=== PATIENT | male | born 1960 | race Caucasian/White ===

== ENCOUNTER 2019-03-19 16:49 | Emergency (ER) | payer MEDICAID ==
--- NOTE | 2019-03-19 17:14 | EDM.PDOC ---
ED HPI GENERAL MEDICAL PROBLEM - General Chief Complaint: Genitourinary Problem Stated Complaint: STOMACH PAIN Time Seen by Provider: 03/19/19 16:57 Source of Information: Reports: Patient History Limitations: Reports: No Limitations - History of Present Illness INITIAL COMMENTS - FREE TEXT/NARRATIVE: 58-year-old male [place] Citizen Of [place] descent presents to the ED with a rash on the glans penis for the last 2-3 weeks. He states it's mildly itchy. When he wakes up in the morning he has a bit more discharge under the foreskin than usual. He is been washing the area 3 times a day with soap and this may be part of the problem. No previous similar problems. Onset: Gradual (Probably started 3 weeks ago.) Duration: Week(s):, Constant, Other (Not getting better) Location: Reports: Other (Rash to the glans penis.) Quality: Reports: Other Severity: Mild (Itching with mild burning at times) Improves with: Reports: None Worsens with: Reports: None Context: Reports: Other (Spontaneous occurrence.). Denies: Activity, Exercise, Lifting, Sick Contact, Trauma Associated Symptoms: Reports: No Other Symptoms Treatments [employer]: Reports: Other (see below) (None.) Penis Pain Score (Numeric/FACES): 3 - Related Data Home Meds: Home Meds Aspirin 81 mg PO DAILY 03/19/19 [History] Lisinopril [Prinivil] 5 mg PO DAILY 03/19/19 [History] Metoprolol Succinate 50 mg PO DAILY 03/19/19 [History] Terbinafine [LamISIL AT] 15 gm TP DAILY #1 tube 03/19/19 [Rx] Past Medical History HEENT History: Reports: Allergic Rhinitis Cardiovascular History: Reports: High Cholesterol, [place] Other Cardiovascular History: with two stents Social & Family History - Tobacco Use Smoking Status *Q: Never Smoker - Caffeine Use Caffeine Use: Reports: None - Living Situation & Occupation Occupation: Employed ED ROS GENERAL - Review of Systems Review Of Systems: See Below Constitutional: Denies: Fever, Chills, Malaise, Weakness, Fatigue, Decreased Appetite, Weight Loss HEENT: Reports: No Symptoms Respiratory: Reports: No Symptoms Cardiovascular: Reports: Blood Pressure Problem (Usually well-controlled with current medications.) Endocrine: Reports: No Symptoms GI/Abdominal: Reports: Other (Occasional problems with heartburn.) : Reports: Discharge (Rash glans penis for about 3 weeks. Notices a discharge from under the foreskin every morning when he gets up.), Other Musculoskeletal: Reports: Joint Pain (Mild arthritis hands knees and hips.) Skin: Reports: Other (Rash glans penis.) Neurological: Reports: No Symptoms ( No discharge from the urethra.) Psychiatric: Reports: No Symptoms Hematologic/Lymphatic: Reports: No Symptoms ED EXAM, RENAL/ - Physical Exam Exam: See Below Exam Limited By: No Limitations General Appearance: Alert, WD/WN, No Apparent Distress (Male) Exam: Other (Patient has mild balanitis underneath his foreskin. It is causing some mild erythema and inflammation of the dorsal surface of the glans penis. Is a component of yeast infection.) Extremities: Normal Inspection, Normal Range of Motion, Non-Tender Neurological: Alert, Oriented, CN II-XII Intact, Normal Cognition Course - Vital Signs Last Recorded V/S: Last Vital Signs Temp 36.7 C 03/19/19 16:56 Pulse 68 03/19/19 16:56 Resp 16 03/19/19 16:56 BP 151/86 H 03/19/19 16:56 Pulse Ox 98 03/19/19 16:56 - Radiology Interpretation Free Text/Narrative:: 58-year-old male presents to the ED with a rash on the glans penis for the last 2-3 weeks. It is mildly pruritic and burning at times. Associated with discharge from under the foreskin first thing in the morning. He has been cleansing the area 3 times daily often with soap containing perfume which is causing further irritation. Patient advised cleansing once daily as enough and just use water. She will be Lamisil cream to be applied to the area under the foreskin at bedtime and to use this for about 10 days for row. May need to use it again in the future. Departure - Departure Time of Disposition: 17:11 Disposition: Home, Self-Care 01 Condition: Fair Clinical Impression: Candidal balanitis - Discharge Information *PRESCRIPTION DRUG MONITORING PROGRAM REVIEWED*: Not Applicable *COPY OF PRESCRIPTION DRUG MONITORING REPORT IN PATIENT JODI: Not Applicable Prescriptions: Terbinafine [LamISIL AT] 15 gm TP DAILY #1 tube Instructions: Balanitis Referrals: PCP,None [Primary Care Provider] - Forms: ED Department Discharge Additional Instructions: Evaluation the emergency room today in regards to inflammation of the glans penis underneath the foreskin. This is caused by a yeast infection which we call candidiasis. Treatment is to apply Lamisil cream to the area once daily at bedtime for the next 10 days. They will look and feel much better within 2-3 days. Wash the area daily only with water. Area void all soaps that contain a large amount of perfume or deodorant. Lamisil cream is an [id number] medication and available in any pharmacy or at [facility].
== END 2019-03-19 17:27 | disposition home or self-care (01) ==
LOC: JD.ED 16:49
DX: B37.42 Candidal balanitis (principal); E78.00 Pure hypercholesterolemia, unspecified; I25.2 Old myocardial infarction; Z79.899 Other long term (current) drug therapy; Z79.82 Long term (current) use of aspirin
CPT/HCPCS: 99282; 99283

== ENCOUNTER 2021-02-25 18:29 | Emergency (ER) | payer MEDICAID, OTHER ==
--- NOTE | 2021-02-25 19:07 | EDM.PDOC ---
ED HPI GENERAL MEDICAL PROBLEM - General Chief Complaint: Medication Administration Stated Complaint: blood pressure high Time Seen by Provider: 02/25/21 18:44 Source of Information: Reports: Patient, RN Notes Reviewed History Limitations: Reports: No Limitations - History of Present Illness INITIAL COMMENTS - FREE TEXT/NARRATIVE: Patient is a 60-year-old male who presents to the ER for the evaluation of needing a medication refill. Patient is on 2 different blood pressure medications, metoprolol tartrate 50 mg twice daily, and lisinopril 5 mg daily. Patient notes he lives or resides in [place], and is in [place] in the [place] for work and is unable to get to his regular provider for medications. His provider refused to refill them, so he comes to the ER for medication refill. He states that he gets anxious when he gets close to the end of his blood pressure medications as he does not want to run out. He does note that his had some palpitations over the last few days, due to this. Other than this he is having no chest pain, denying any fevers or chills, cough or shortness of breath, or any sort of nausea/vomiting/diarrhea. - Related Data Allergies Allergy/AdvReac Type Severity Reaction Status Date / Time No Known Allergies Allergy Verified 02/25/21 18:42 Home Meds: Home Meds Aspirin 81 mg PO DAILY 03/19/19 [History] lisinopriL [Prinivil] 5 mg PO DAILY 03/19/19 [History] Metoprolol Tartrate 50 mg PO BID #60 tablet 02/25/21 [Rx] lisinopriL [Prinivil] 5 mg PO DAILY #30 tab 02/25/21 [Rx] Past Medical History HEENT History: Reports: Allergic Rhinitis Cardiovascular History: Reports: High Cholesterol, [place] Other Cardiovascular History: with two stents Social & Family History - Tobacco Use Tobacco Use Status *Q: Never Tobacco User - Caffeine Use Caffeine Use: Reports: None - Recreational Drug Use Recreational Drug Use: No - Living Situation & Occupation Occupation: Employed ED ROS GENERAL - Review of Systems Review Of Systems: Comprehensive ROS is negative, except as noted in HPI. ED EXAM, GENERAL - Physical Exam Exam: See Below Exam Limited By: No Limitations General Appearance: Alert, WD/WN, No Apparent Distress, Anxious (generalized slight) Respiratory/Chest: No Respiratory Distress, Lungs Clear, Normal Breath Sounds, No Accessory Muscle Use, Chest Non-Tender Cardiovascular: Normal Peripheral Pulses, Regular Rate, Rhythm, No Edema Peripheral Pulses: 2+: Radial (L), Radial (R) Extremities: Normal Inspection, Normal Capillary Refill Neurological: Alert, Oriented, Normal Cognition, No Motor/Sensory Deficits Psychiatric: Normal Affect, Normal Mood, Anxious (slight generalized) Skin Exam: Warm, Dry, Intact, Normal Color, No Rash #1 Interpretation EKG Date: 02/25/21 Time: 19:13 Rhythm: NSR Rate (Beats/Min): 90 [place]: Normal P-Wave: Present QRS: Normal ST-T: Normal QT: Normal Comparison: NA - No Prior EKG EKG Interpretation Comments: No obvious ischemia or acute ST changes noted, reviewed by myself and Dr. Dick. Course - Vital Signs Last Recorded V/S: Last Vital Signs Temp 97.2 F 02/25/21 18:40 Pulse 87 02/25/21 18:40 Resp 18 02/25/21 18:40 BP 179/91 H 02/25/21 18:40 Pulse Ox 99 02/25/21 18:40 - Orders/Labs/Meds Orders: Active Orders 24 hr Category Date Time Status EKG Documentation Completion [RC] STAT Care 02/25/21 19:00 Ordered - Re-Assessments/Exams Free Text/Narrative Re-Assessment/Exam: 02/25/21 19:03 Patient presents to the ED for a medication refill, I did offer to do laboratory evaluation to make sure electrolytes were all okay however he declined at this time. He does want an EKG to be done, as he was feeling some palpitations want to make sure there is no arrhythmias apparent. This has been ordered, and I have given him prescriptions for refill of his metoprolol lisinopril for ongoing management with some refills hopefully get him through until he can get back to [place] to see his provider. Departure - Departure Time of Disposition: 19:21 Disposition: Home, Self-Care 01 Condition: Good Clinical Impression: Encounter for medication refill, Palpitations with regular cardiac rhythm - Discharge Information *PRESCRIPTION DRUG MONITORING PROGRAM REVIEWED*: No *COPY OF PRESCRIPTION DRUG MONITORING REPORT IN PATIENT JODI: No Prescriptions: Metoprolol Tartrate 50 mg PO BID #60 tablet lisinopriL [Prinivil] 5 mg PO DAILY #30 tab Instructions: Palpitations, [id number] Referrals: PCP,Not In Area [Primary Care Provider] - Forms: ED Department Discharge Additional Instructions: You were evaluated in the ER today for a medication refill, and your palpitations. Refills of your metoprolol tartrate and lisinopril were provided, these were sent to the [place] pharmacy located in the [employer] [facility] located at [address] [place] [address], you were given a few refills on these medications, in hopes that you can make it until August when you go back home to see your provider for further management. EKG done at today's visit demonstrates no acute ischemic change, or arrhythmias. Please return to the ER at any time if symptoms change or worsen. Sepsis Event Note (ED) - Evaluation Sepsis Screening Result: No Definite Risk - Focused Exam Vital Signs: Vital Signs Temp Pulse Resp BP Pulse Ox 02/25/21 18:40 97.2 F 87 18 179/91 H 99 - My Orders Last 24 Hours: My Active Orders 02/25/21 19:00 EKG Documentation Completion [RC] STAT - Assessment/Plan Last 24 Hours: My Active Orders 02/25/21 19:00 EKG Documentation Completion [RC] STAT
== END 2021-02-25 19:30 | disposition home or self-care (01) ==
LOC: JD.ED 18:29
DX: R00.2 Palpitations (principal); Z76.0 Encounter for issue of repeat prescription; E78.00 Pure hypercholesterolemia, unspecified; I25.2 Old myocardial infarction; I10 Essential (primary) hypertension; Z95.5 Presence of coronary angioplasty implant and graft; Z79.82 Long term (current) use of aspirin; Z79.899 Other long term (current) drug therapy
CPT/HCPCS: 93005; 93010; 99282-25; 99283

== ENCOUNTER 2021-10-30 12:28 | Emergency (ER) | payer MEDICAID ==
--- NOTE | 2021-10-30 12:55 | EDM.PDOC ---
ED HPI GENERAL MEDICAL PROBLEM - General Chief Complaint: Medication Administration Stated Complaint: HIGH BLOOD PRESSURE Time Seen by Provider: 10/30/21 12:39 Source of Information: Reports: Patient, RN Notes Reviewed History Limitations: Reports: No Limitations - History of Present Illness INITIAL COMMENTS - FREE TEXT/NARRATIVE: Patient is a 60-year-old male who presents to the ER for a medication refill. Patient states that he is from [place], and was not able to return home in August like he had originally planned, so he has subsequently run out of his blood pressure medications. States that he takes metoprolol tartrate 50 mg twice daily and lisinopril 5 mg daily. States he is having no other sick issues like fevers or chills, cough or shortness of breath or any sort of chest pain. He strictly just ran out of his blood pressure medications and does not want his blood pressure get out of control. - Related Data Allergies Allergy/AdvReac Type Severity Reaction Status Date / Time No Known Allergies Allergy Verified 10/30/21 12:44 Home Meds: Home Meds Aspirin 81 mg PO DAILY 03/19/19 [History] Metoprolol Tartrate 50 mg PO BID #60 tablet 10/30/21 [Rx] lisinopriL [Lisinopril] 5 mg PO DAILY #30 tablet 10/30/21 [Rx] Past Medical History HEENT History: Reports: Allergic Rhinitis Cardiovascular History: Reports: High Cholesterol, [place] Other Cardiovascular History: with two stents Social & Family History - Tobacco Use Tobacco Use Status *Q: Never Tobacco User Second Hand Smoke Exposure: No - Caffeine Use Caffeine Use: Reports: Coffee - Recreational Drug Use Recreational Drug Use: No - Living Situation & Occupation Occupation: Employed ED ROS GENERAL - Review of Systems Review Of Systems: Comprehensive ROS is negative, except as noted in HPI. ED EXAM, GENERAL - Physical Exam Exam: See Below Exam Limited By: No Limitations General Appearance: Alert, WD/WN, No Apparent Distress Respiratory/Chest: No Respiratory Distress, Lungs Clear, Normal Breath Sounds, No Accessory Muscle Use, Chest Non-Tender Cardiovascular: Normal Peripheral Pulses, Regular Rate, Rhythm, No Edema Peripheral Pulses: 2+: Radial (L), Radial (R) Extremities: Normal Inspection, Normal Capillary Refill Neurological: Alert, Oriented, Normal Cognition, No Motor/Sensory Deficits Psychiatric: Normal Affect, Normal Mood Skin Exam: Warm, Dry, Intact, Normal Color, No Rash Course - Vital Signs Last Recorded V/S: Last Vital Signs Temp 98.0 F 10/30/21 12:42 Pulse 79 10/30/21 12:42 Resp 20 10/30/21 12:42 BP 155/92 H 10/30/21 12:42 Pulse Ox 100 10/30/21 12:42 - Re-Assessments/Exams Free Text/Narrative Re-Assessment/Exam: 10/30/21 12:59 Patient presents to the ER for medication refill. I did explain to him that coming to the ER for medication refill is not the most appropriate thing and that if the skin to be in this area for some time due to work, he should probably get a primary care provider in this area as well to facilitate these refills. Patient verbalized understanding. Departure - Departure Time of Disposition: 12:54 Disposition: Home, Self-Care 01 Condition: Good Clinical Impression: Encounter for medication refill - Discharge Information *PRESCRIPTION DRUG MONITORING PROGRAM REVIEWED*: No *COPY OF PRESCRIPTION DRUG MONITORING REPORT IN PATIENT JODI: No Prescriptions: lisinopriL [Lisinopril] 5 mg PO DAILY #30 tablet Metoprolol Tartrate 50 mg PO BID #60 tablet Instructions: Medicine Refill at the Emergency Department Referrals: PCP,None [Primary Care Provider] - Forms: ED Department Discharge Additional Instructions: You were evaluated in the ER today for a medication refill of your blood pressure medications. You have been given 2 different medication prescriptions, lisinopril 5 mg daily and metoprolol tartrate 50 mg twice daily. You have been given enough refills to get you through until March, until you can make it home to [place]. This medication was electronically sent to the [place] pharmacy located in the [employer] store. Thank you for allowing and choosing us to be involved in your healthcare needs. Sepsis Event Note (ED) - Focused Exam Vital Signs: Vital Signs Temp Pulse Resp BP Pulse Ox 10/30/21 12:42 98.0 F 79 20 155/92 H 100
== END 2021-10-30 13:40 | disposition home or self-care (01) ==
LOC: JD.ED 12:28
DX: I10 Essential (primary) hypertension (principal); Z76.0 Encounter for issue of repeat prescription; E78.00 Pure hypercholesterolemia, unspecified; I25.2 Old myocardial infarction; Z79.899 Other long term (current) drug therapy; Z79.82 Long term (current) use of aspirin
CPT/HCPCS: 99281; 99283